=== PATIENT | male | born 1945 | race Caucasian/White ===

== ENCOUNTER → 2016-12-16 | Outpatient (CLI) | payer MEDICARE ==
[~2016-12-16] MED LIST: PERCOCET 5/3251 EACH PO
--- NOTE | 2016-12-16 16:08 | RADIOLOGY REPORT PS360 ---
US NLFOWI-MALXEJ-URONOCYFZZTH HISTORY: ESSENTIAL HYPERTENSION, RENAL INSUFFICIENCY ORDERING PHYSICIAN: MODESTO RAMOS APRN PATIENT AGE: 71 years COMPARISON: None FINDINGS: RIGHT KIDNEY:11 x 4 x 6.4 cm. No hydronephrosis or renal mass. Only minimal cortical thinning LEFT KIDNEY:No hydronephrosis. 10 x 4.4 x 5.4 cm. Only minimal cortical thinning. OTHER FINDINGS: No other pertinent findings IMPRESSION: Unremarkable bilateral renal ultrasound
== END ==
LOC: RAD 15:20
DX: I10 Essential (primary) hypertension (principal); N28.9 Disorder of kidney and ureter, unspecified

== ENCOUNTER → 2017-02-16 | Outpatient (CLI) | payer MEDICARE ==
--- NOTE | 2017-02-16 13:17 | RADIOLOGY REPORT PS360 ---
History and Indications: Coronary artery disease, history of SD, bypass surgery, anterior, hypertension, diabetes, tobacco use, family history, shortness of breath and fatigue Procedure: Patient received a 0.4 mg Lexiscan, resting heart rate was 48 bpm, resting blood pressure 167/74, intravenous Lexiscan maximum heart rate achieved was 2 bpm which is less than 85% of the maximum predicted heart rate and a blood pressure was 113/51. With Lexiscan no symptoms recorded. Electrocardiogram: Resting electrocardiogram showed sinus bradycardia inferior and lateral ST-T changes consider ischemia versus strain pattern. With Lexiscan there is less than 1.[address] segment depression noted from the baseline EKG. The EKG portion of the Lexiscan Myoview is nondiagnostic secondary to baseline abnormal EKG. Cardiac stress and resting SPECT images: Cardiac stress and rest SPECT images were obtained technetium 99 Myoview 10.9 mCi at rest and 31.2 mCi at stress, gated SPECT further analysis of segmental wall motion and calculation of the ejection fraction also done. Cardiac stress and rest SPECT images show a mild fixed defect in the inferior wall with normal contractility on the gated SPECT is likely secondary to soft tissue attenuation, no reversible ischemia seen. Computer derived ejection fraction is 61% with no obvious regional wall motion abnormality, right ventricle is mildly enlarged with normal contractility. Conclusion: 1. The EKG portion of the Lexiscan Myoview is nondiagnostic. 2. No obvious scintigraphic evidence of reversible ischemia seen, computer derived ejection fraction is 61% with no obvious regional wall motion abnormality, right ventricle is mildly enlarged with normal contractility.
--- NOTE | 2017-02-16 15:11 | RADIOLOGY REPORT PS360 ---
PROCEDURE: 2-D M-mode and color Doppler study INDICATIONS FOR THE TEST: Chest pain COPD Heart Murmur Tobacco Smoking+ Palpitations Fatigue Syncope Edema Hypertension+Diabetes Mellitus+ Rheumatic Fever SOB+SALAS Obesity+Hyperlipidemia Family History HD Additional History STENTS PATIENT INFORMATION HEIGHT: 72 WEIGHT:260 GENDER: Male B/P:167/74 2-D/M-MODE INTERPRETATION: 2-D MEASUREMENTS OBSERVED VALUES IN CMS Right Ventricular Dimension (RVDd) 2.4 Interventricular Septum (Thickness)(IVsd) 1.4 Left Ventricular Internal Dimensions(LVIDd) 4.7 Left Ventricular Posterior Wall (Thickness)(LVPWd) 1.2 Aortic Root 3.1 Aortic Cusp Separation 1.9 Left Atrial Dimensions (LAD) 5.2 2D 1. Left atrium is moderately enlarged, left ventricle is normal size, there is mild concentric left ventricular hypertrophy, visually estimated ejection fraction 50% with no obvious regional wall motion abnormality, endocardial surfaces are somewhat poorly visualized. 2. The right atrium and right ventricle are normal size and contractility. 3. The aortic valve is minimally thickened and fibrosed. 4. The mitral and tricuspid valve leaflets are minimally thickened. 5. The pulmonic valve is poorly visualized. 6. No significant pericardial effusion noted. DOPPLER INTERROGATION: Doppler interrogation of the aortic mitral and tricuspid valve reveals presence of mild mitral and tricuspid regurgitation, tricuspid regurgitant jet velocity is insufficient for accurate assessment of the right ventricular systolic pressure, grade 1 diastolic dysfunction seen without tissue Doppler evidence of raised left atrial pressure. CONCLUSION: 1. Moderately enlarged left atrium, normal left ventricular size, mild concentric left ventricular hypertrophy, visually estimated ejection fraction of 50% with no obvious regional wall motion abnormality, endocardial surfaces are poorly visualized. Grade 1 diastolic dysfunction seen without tissue Doppler evidence of raised left atrial pressure. 2. Mild mitral and tricuspid regurgitation. 3. No significant pericardial effusion noted.
== END ==
LOC: RAD 07:30
DX: I25.10 Atherosclerotic heart disease of native coronary artery without angina pectoris (principal); I10 Essential (primary) hypertension; R06.09 Other forms of dyspnea; E78.5 Hyperlipidemia, unspecified; Z72.0 Tobacco use; Z95.1 Presence of aortocoronary bypass graft
CPT/HCPCS: A9502; J2785

== ENCOUNTER 2017-02-26 07:29 | Day surgery (SDC) | payer MEDICARE ==
[2017-02-26 08:16] LABS: HEMOGLOBIN 13.7 g/dL (14.1-18.0); LYMPH # 2.4 K/mm3 (0.7-4.5); LYMPH % 17.8 % (10-50)
[2017-02-26 08:21] LABS: BUN 21 mg/dL (7-18); GFR (ESTIMATED) 50 ML/MIN (>60)
--- NOTE | 2017-02-26 11:55 | RADIOLOGY REPORT PS360 ---
PROCEDURE: Left femoral arterial access Pigtail catheter placement in the abdominal aorta Abdominal aortography with iliofemoral angiography Right femoral arterial access Right retrograde femoral angiogram Left retrograde femoral angiogram Bare-metal stent deployment to the right common iliac artery Bare-metal stent deployment to the left common iliac artery and the left external iliac artery Post stent deployment catheter placement in the abdominal aorta The lateral iliofemoral angiogram INDICATION: 1. Linda claudication class III 2. Known peripheral artery disease 3. Right common iliac artery stenosis 4. Left Common iliac artery stenosis Left External iliac artery stenosis Informed consent was obtained prior to the procedure. COMPLICATIONS: None ESTIMATED BLOOD LOSS: Blood loss less than 10 cc. TECHNIQUE:1% lidocaine used to anesthetize the left femoral groin. The left femoral artery was accessed via the Seldinger technique. A pigtail catheter was advanced to the distal abdominal aorta. Because of patient's creatinine of 1.4 by chose not to perform abdominal aortography but rather bilateral iliofemoral angiography with the catheter in the distal abdominal aorta. Once the severe bilateral common iliac artery disease was identified one percent lidocaine was used to anesthetize the right groin in the right femoral artery was accessed via the Seldinger technique. A 23 cm bright tip 6 Dominican sheath was advanced in the right femoral artery. 10,000 units of heparin was administered intravenously. In 9 mm x 39 mm bare-metal Weber stent was deployed at 10 carissa followed by 16 carissa reducing the severe stenosis to 0%. The 4 Dominican left femoral sheath was then exchanged for a 7 Dominican short sheath and a 9 mm x 59 mm Weber stent was deployed at 16 carissa in the left common iliac artery. An additional 9 mm x 29 mm Weber stent was then deployed in the left external iliac artery at 14 carissa with the balloon being advanced and deployed at 16 to mesh the 2 together. Following this the apparatus was removed and a pigtail catheter was placed in the right groin into the abdominal aorta with repeat angiography. Bilateral retrograde angiography was performed prior to stent deployment. After achieving an angiographic results the apparatus was removed the groin is reprepped closure changed sheath was removed good hemostasis was achieved using Perclose device from both the right and left femoral artery. Patient transferred the postop holding area in stable condition the initial ACT was 338 while the closing ACT 235 therefore an additional 2000 units of heparin was administered intravenously. Patient was taking Plavix R ready for the day. ANGIOGRAPHIC RESULTS: 1. The right common iliac artery is has a severe heavily calcified concentric stenosis compromising the artery approximately 90%. 2. The right external iliac artery is mildly disease with eccentric 20% stenosis 3. The right internal iliac artery is is normal 4. The right common femoral artery is is normal 9. The left common iliac artery has severe eccentric calcified ostial disease with sequential 80% stenoses and a distal 70% heavily calcified lesion. 10. The left external iliac artery is has a proximal 60-70% calcified stenosis 11. The left internal iliac artery is occluded ostially and fills via left to left collaterals 12. The left common femoral artery is normal Impression: 1. Severe bilateral common iliac artery stenosis and severe left external iliac artery stenosis 2. Successful stenting of the bilateral common iliac artery severe calcified disease reduced to 10% with 1. Stent in the right common iliac artery and 1 stent in the left common iliac artery with an additional stent extending into the left external iliac artery Plan: 1. Aspirin Plavix 2. LDL less than 55 3. Risk factor modification 4. Cardiac rehabilitation with physical therapy and avoidance of tobacco products
[2017-02-26 14:10] VITALS: BP 150/60
== END 2017-02-26 14:00 | disposition home or self-care (01) ==
LOC: CATHLAB 07:29
PROVIDERS: Internal Medicine
PROC: B41F1ZZ Fluoroscopy of Right Lower Extremity Arteries using Low Osmolar Contrast (ICD-10-PCS; 2017-02-26)
PROC: 047C34Z Dilation of Right Common Iliac Artery with Drug-eluting Intraluminal Device, Percutaneous Approach (ICD-10-PCS; 2017-02-26)
PROC: 047D34Z Dilation of Left Common Iliac Artery with Drug-eluting Intraluminal Device, Percutaneous Approach (ICD-10-PCS; 2017-02-26)
PROC: 047J34Z Dilation of Left External Iliac Artery with Drug-eluting Intraluminal Device, Percutaneous Approach (ICD-10-PCS; 2017-02-26)
PROC: B41G1ZZ Fluoroscopy of Left Lower Extremity Arteries using Low Osmolar Contrast (ICD-10-PCS; principal; 2017-02-26 11:30)
DX: I70.203 Unspecified atherosclerosis of native arteries of extremities, bilateral legs (principal); I10 Essential (primary) hypertension; Z72.0 Tobacco use; Z95.1 Presence of aortocoronary bypass graft
CPT/HCPCS: C1725; C1760; C1769; C1876; C1894; J1644; Q9966

== ENCOUNTER 2017-04-21 09:39 | Day surgery (SDC) | payer MEDICARE ==
[2017-04-21 13:17] VITALS: BP 138/64
== END 2017-04-21 12:35 | disposition home or self-care (01) ==
LOC: SDC 09:39
PROC: 08RJ3JZ Replacement of Right Lens with Synthetic Substitute, Percutaneous Approach (ICD-10-PCS; principal; 2017-04-21)
DX: H26.9 Unspecified cataract (principal); E11.9 Type 2 diabetes mellitus without complications

== ENCOUNTER 2017-05-05 06:11 | Day surgery (SDC) | payer MEDICARE ==
[2017-05-05 09:31] VITALS: BP 135/67
== END 2017-05-05 08:25 | disposition home or self-care (01) ==
LOC: SDC 06:11
PROVIDERS: Ophthalmology
PROC: 08RK3JZ Replacement of Left Lens with Synthetic Substitute, Percutaneous Approach (ICD-10-PCS; principal; 2017-05-05 07:30)
DX: H26.9 Unspecified cataract (principal); E11.9 Type 2 diabetes mellitus without complications
CPT/HCPCS: V2632